=== PATIENT | male | born 1945 | race Caucasian/White ===

== ENCOUNTER 2016-08-31 06:39 | Day surgery (SDC) | payer OTHER ==
--- NOTE | ~2016-08-31 | EGD ---
EGD REPORT [facility] [address] [place] [address] NAME: BRITTANY STRANGE : [birth year] STATUS : REG [facility]#: [id number] AGE: 71 ADM/REG DATE : 08/31/16 MR#: [id number] REPORT SERV DATE: 08/31/16 DICTATED BY: RAH CARDONA DATE: 08/31/16 REPORT STATUS : Draft [facility] DATE: 08/31/16 [facility] Patient Name: Brittany Strange Date of : 1945 Attending MD: RAH CARDONA MD Procedure Date No Time: 08/31/2016 Procedure: Colonoscopy Indications: High risk colon cancer surveillance: Personal history of colonic polyps, FH of Colon Cancer - 1st degree relative Referring MD: KARI ROSS Medicines: as per anesthesia Complications: No immediate complications. Procedure: Pre-Anesthesia Assessment: - ASA Grade Assessment: II - A patient with mild systemic disease. After I obtained informed consent, the scope was passed under direct vision. Throughout the procedure, the patient's blood pressure, pulse, and oxygen saturations were monitored continuously. The PCF [id number] was introduced through the anus and advanced to the cecum, identified by appendiceal orifice and ileocecal valve. The colonoscopy was performed without difficulty. The patient tolerated the procedure. The quality of the bowel preparation was fair. Findings: The perianal and digital rectal examinations were normal. A sessile polyp was found in the ascending colon. The polyp was 3 mm in size. The polyp was removed with a jumbo cold forceps. Resection and retrieval were complete. Internal hemorrhoids were found during endoscopy and were mild. Impression: - One 3 mm polyp in the ascending colon. Resected and retrieved. - Internal hemorrhoids. Recommendation: - Await pathology results. - Repeat colonoscopy for surveillance based on pathology results. Procedure Code(s): --- Professional --- 80603, Colonoscopy, flexible, proximal to splenic flexure; with biopsy, single or multiple Diagnosis Code(s): --- Professional --- EGD REPORT [address] [address] NAME: BRITTANY STRANGE : [birth year] STATUS : REG [facility]#: [id number] AGE: 71 ADM/REG DATE : 08/31/16 MR#: [id number] REPORT SERV DATE: 08/31/16 DICTATED BY: RAH CARDONA. DATE: 08/31/16 REPORT STATUS : Draft TRANSCRIBED BY: [facility] DATE: 08/31/16 D12.2, Benign neoplasm of ascending colon K64.8, Other hemorrhoids Z86.010, Personal history of colonic polyps Z80.0, Family history of malignant neoplasm of digestive organs CPT copyright 2013 [employer]. All rights reserved. The codes documented in this report are preliminary and upon boot trimmer review may be revised to meet current compliance requirements. RAH CARDONA MD 08/31/2016 8:49 AM This report has been signed electronically. Number of Addenda: 0 Note Initiated On: 08/31/2016 8:15 AM Scope Withdrawal Time 0 hours 11 minutes 43 seconds
[~2016-08-31 06:39] MED LIST: ALEVE220 MG PO; ASAB PO; HCTZ25B PO; LISINOPRIL40 MG PO; NASONEX NAS; NORV5 PO; PROSCAR5 PO; ZOCOR40 PO; ZYRTEC ALLGY10 MG PO
== END 2016-08-31 23:59 | disposition home or self-care (01) ==
LOC: DMU 06:39
PROVIDERS: Internal Medicine Gastroenterology
PROC: 0DBK8ZX Excision of Ascending Colon, Via Natural or Artificial Opening Endoscopic, Diagnostic (ICD-10-PCS; principal; 2016-08-31 08:00)
DX: Z12.11 Encounter for screening for malignant neoplasm of colon (principal); K64.8 Other hemorrhoids; I10 Essential (primary) hypertension; Z86.010 Personal history of colon polyps; Z80.0 Family history of malignant neoplasm of digestive organs; Z90.89 Acquired absence of other organs; Z98.41 Cataract extraction status, right eye; Z98.42 Cataract extraction status, left eye; Z98.890 Other specified postprocedural states
CPT/HCPCS: 88305